=== PATIENT | female | born 1970 | race Caucasian/White ===

== ENCOUNTER 2021-07-07 08:08 | Outpatient (REF) | payer MEDICARE, MEDICAID, SELFPAY ==
[2021-07-07 11:30] LABS: Glucose Urine UA NEG (NEG); Leukocyte Esterase Urine 1+ (NEG); Nitrite Urine NEG (NEG); Urine Blood NEG (NEG); Urine Ketones NEG (NEG); Urine Protein NEG (NEG-TRACE)
[2021-07-07 11:39] LABS: Hematocrit 41.8 % (37-47); Hemoglobin 13.8 g/dl (12.0-16.0); Mean Corpuscular Hemoglobin 30.3 pg (27.0-33.0); Mean Corpuscular Volume 91.9 fL (80-98); Mean Platelet Volume 9.9 fL (9.4-12.3); Platelet Count 179 X10*3/uL (160-400); Red Blood Count 4.55 X10*6/uL (4.20-5.50); Red Cell Distribution Width 13.2 % (11.0-16.0)
[2021-07-07 11:43] LABS: Appearance Urine CLEAR; Color Urine YELLOW
[2021-07-07 11:54] LABS: Alanine Aminotransferase 17 U/L (0-31); Albumin Level 3.8 g/dL (3.5-5.0); Alkaline Phosphatase 75 U/L (39-117); Anion Gap 13 (12-20); Aspartate Amino Transferase 17 U/L (5-31); Bilirubin Total 0.4 mg/dL (0.0-1.0); Blood Urea Nitrogen 13 mg/dL (9-16); Calcium 9.6 mg/dL (8.4-10.2); Carbon Dioxide 27 mmol/L (22-29); Chloride 106 mmol/L (96-108); Cholesterol 189 mg/dL; Estimated Glomerular Filt Rate > 60; Glucose Fasting 88 mg/dL (60-99); HDL Cholesterol 54 mg/dL; Iron 126 mcg/dL (30-160); LDL Cholesterol Calculated 113 mg/dl; Percent Iron Saturation 51 % (15-50); Potassium 4.1 mmol/L (3.3-5.1); Sodium 142 mmol/L (135-145); Total Iron Binding Capacity 247 mcg/dL (228-428); Total Protein 6.6 g/dL (6.5-8.0); Triglycerides 114 mg/dL; Unsaturated Iron Binding 121 ug/dL
[2021-07-07 12:07] LABS: Bacteria Urine 2+ /LPF; RBC Urine 0 /HPF (0); Squamous Epithelial Cell Urine 3+ /LPF
[2021-07-07 12:17] LABS: TSH reflex Free T4 0.09 uIU/mL (0.32-4.0)
[2021-07-07 12:51] LABS: Free T4 (Free Thyroxine) 1.15 ng/dL (0.71-1.85)
== END 2021-07-07 08:09 | disposition home or self-care (01) ==
LOC: HO.HMGCLDS 08:08
PROVIDERS: PCP Internal Medicine; Visit Provider Internal Medicine
DX: Z00.00 Encounter for general adult medical examination without abnormal findings (principal); E03.9 Hypothyroidism, unspecified
CPT/HCPCS: 36415; 80053; 80061; 81001; 83540; 84439; 84443; 85027

== ENCOUNTER 2022-04-05 11:46 | Outpatient (REF) | payer MEDICARE, MEDICAID, SELFPAY ==
[2022-04-05 14:02] LABS: Hematocrit 44.6 % (37.0-47.0); Hemoglobin 14.6 g/dl (12.0-16.0); Mean Corpuscular HGB Conc 32.7 g/dl (31.0-35.0); Mean Corpuscular Hemoglobin 29.9 pg (27.0-33.0); Mean Corpuscular Volume 91.4 fL (80.0-98.0); Mean Platelet Volume 9.9 fL (9.4-12.3); Platelet Count 213 X10*3/uL (160-400); Red Blood Count 4.88 X10*6/uL (4.20-5.50); Red Cell Distribution Width 13.5 % (11.0-16.0); White Blood Count 4.5 X10*3/uL (4.8-10.8)
[2022-04-05 14:16] LABS: Alanine Aminotransferase 17 U/L (0-31); Albumin Level 4.1 g/dL (3.5-5.0); Alkaline Phosphatase 82 U/L (39-117); Anion Gap 12 (12-20); Aspartate Amino Transferase 17 U/L (5-31); Bilirubin Total 0.3 mg/dL (0.0-1.0); Blood Urea Nitrogen 13 mg/dL (9-16); Calcium 10.3 mg/dL (8.4-10.2); Carbon Dioxide 29 mmol/L (22-29); Chloride 103 mmol/L (96-108); Cholesterol 207 mg/dL; Estimated Glomerular Filt Rate > 60; Glucose Fasting 92 mg/dL (60-99); HDL Cholesterol 57 mg/dL; LDL Cholesterol Calculated 122 mg/dl; Potassium 4.5 mmol/L (3.3-5.1); Sodium 139 mmol/L (135-145); Total Protein 7.3 g/dL (6.5-8.0); Triglycerides 143 mg/dL
[2022-04-05 14:37] LABS: TSH reflex Free T4 0.32 uIU/mL (0.32-4.0)
[2022-04-05 14:46] LABS: Folate > 20.0 ng/mL (> or = 4.0); Vitamin B12 503 pg/mL (200-900)
== END 2022-04-05 11:47 | disposition home or self-care (01) ==
LOC: HO.HMGCLDS 11:46
PROVIDERS: Visit Provider Internal Medicine
DX: Z00.00 Encounter for general adult medical examination without abnormal findings (principal); G40.909 Epilepsy, unspecified, not intractable, without status epilepticus; E03.9 Hypothyroidism, unspecified
CPT/HCPCS: 36415; 80053; 80061; 82607; 82746; 84443; 85027

== ENCOUNTER 2022-07-28 13:12 | Outpatient (REF) | payer MEDICARE, MEDICAID, SELFPAY ==
--- NOTE | ~2022-07-28 | XR_ITS ---
EXAMINATION: XR CHEST CLINICAL INFORMATION: Cough. COMPARISON: None TECHNIQUE: 2 views of the chest were obtained. FINDINGS: No significant abnormality is noted involving the heart, lungs, mediastinum, bony thorax or soft tissues. XR/XR chest 2V IMPRESSION: No acute cardiopulmonary process.
[2022-07-28 17:03] LABS: Influenza A PCR NEGATIVE (Negative); Influenza B PCR NEGATIVE (Negative); Resp Syncy Virus RNA Qual PCR NEGATIVE (Negative); SARS COV2 PCR INHOUSE NEGATIVE (Negative)
== END 2022-07-28 13:13 | disposition home or self-care (01) ==
LOC: HO.HMGCX 13:12
PROVIDERS: Visit Provider Nurse Practitioner Acute Care
DX: R05.9 Cough, unspecified (principal); Z20.822 Contact with and (suspected) exposure to COVID-19
CPT/HCPCS: 0241U; 71046

== ENCOUNTER 2022-11-02 11:10 | Outpatient (REF) | payer MEDICARE, MEDICAID, SELFPAY ==
[2022-11-02 16:36] LABS: TSH reflex Free T4 0.01 uIU/mL (0.32-4.0)
[2022-11-02 17:11] LABS: Free T4 (Free Thyroxine) 1.84 ng/dL (0.71-1.85)
== END 2022-11-02 11:11 | disposition home or self-care (01) ==
LOC: HO.HMGCLDS 11:10
PROVIDERS: PCP Internal Medicine; Visit Provider Internal Medicine
DX: E03.9 Hypothyroidism, unspecified (principal)
CPT/HCPCS: 36415; 84439; 84443

== ENCOUNTER 2023-06-07 15:45 | Outpatient (AMB) | payer MEDICARE, MEDICAID, SELFPAY ==
--- NOTE | 2023-06-07 16:29 | AM.OFFWIN_ITS ---
Intake Vital Signs 06/07/23 16:35 BP 96/56 L Blood Pressure Location Rt brachial Position Sitting Pulse 92 Pulse Source Pulse Oximeter Temp 97.9 F Temp Source Oral Pulse Oximetry (%) 98 Oxygen Delivery Method Room Air Intake Visit Reasons: EST/Lathargic [id number] Intake Note: Patient here as she has not been eating and has lost weight, very drowsy, balance is off and has been very lathargic for about 2 weeks now but has been gradually happening since january. Patient Tobacco Use Status: Never used Tobacco Allergies Codeine Allergy (Unknown, Uncoded 06/07/23 16:35) as a baby Do you need a note to return to daycare/school/sports/work: No HPI HPI Comments History of Present Illness Details This is a 53-year-old female with past medical history significant for seizure disorder who is presenting to the office today for sick visit. Per patient's caregiver, patient has been experiencing weight loss for the past 3-4 months. Patient has also been refusing food and drink over the past 1 week. She has had altered mental status, drowsiness, and lethargy for the past 1 week. No reported chest pain, shortness of breath, abdominal pain, nausea/vom iting/diarrhea, dysuria/hematuria, urinary frequency/urgency, fever/chills, seizures, syncope, lightheadedness/dizziness, or pain throughout the body. [facility] Medical History Annual physical exam Eyelid cyst Hypothyroidism Mental disability Overweight Seizure disorder Surgical History No pertinent past surgical history Family History Father No problems noted. Mother No problems noted. Social History Housing: Assisted Living Facility Alcohol intake: never Patient Tobacco Use Status: Never used Tobacco e-Cigarette/Vaping Use: Never Used Current occupational status: disabled Cognitive needs: No Hearing needs: No Vision needs: No Review of Systems Const All systems reviewed & are unremarkable except as noted in HPI and below Reports anorexia, Denies chills, Reports fatigue, Denies fever(s), Reports lethargy, Reports poor appetite and Reports weight loss Eyes Reports as per HPI and Reports no additional complaints ENT Reports no additional complaints and Reports as per HPI Card Reports as per HPI and Reports no additional complaints Resp Reports as per HPI and Reports no additional complaints GI Reports as per HPI and Reports no additional complaints Reports no additional complaints and Reports as per HPI Musc Reports no additional complaints and Reports as per HPI Skin/Breast Reports system reviewed and no additional complaints, except as documented and Reports as per HPI Neuro Reports no additional complaints, Reports as per HPI and Reports confusion (baseline) Psych Reports no additional complaints, Reports as per HPI and Reports confusion (baseline) Endo Reports no additional complaints, Reports as per HPI and Reports fatigue Oren/Lymph Reports no additional complaints and Reports as per HPI Aller/Immun Reports no additional complaints and Reports as per HPI Physical Exam Vital Signs: Last Vital Signs Temp 97.9 F 06/07/23 16:35 Pulse 92 06/07/23 16:35 BP 96/56 L 06/07/23 16:35 Pulse Ox 98 06/07/23 16:35 Oxygen Delivery Method Room Air 06/07/23 16:35 Const General: no acute distress, alert, awake, Physically active and confusion (baseline); No ill appearing Orientation/consciousness: confusion (baseline) HEENT Head: Yes normal to inspection, Yes normocephalic and Yes atraumatic Ears: hearing grossly normal bilaterally and TM's normal bilaterally General nose exam: Normal external nose present Face and sinus: Yes normal facial exam Mouth: Abnormal oral and palatal mucosa present (There is a non-tender, non- purulent nodule noted on the right cheek.) Throat: Yes posterior oropharynx normal Eyes General: appearance normal, both eyes and all related structures Neck Neck: Yes no meningeal signs Resp Effort & Inspection: normal respiratory effort Auscultation: clear to auscultation bilaterally, no crackles, no rales, no rhonchi and no wheezes Cardio Rate: regular rate Rhythm: regular rhythm Heart sounds: no gallops, no murmurs and no rubs Peripheral pulses: Peripheral pulses 2+ throughout GI Inspection: Yes normal to inspection and No distended Palpation (GI): Soft to palpation and nontender Auscultation: normal bowel sounds General: Yes no CVA tenderness Back/Spine/Pelvis Back: no CVA tenderness Skin General skin exam: no rashes or lesions noted Neuro Other: Patient is disoriented, but this appears to be her baseline per caregiver. Patient does not appear somnolent or lethargic at this time. Patient moves all 4 extremities spontaneously and she has a normal gait without ataxia. Neurological exam is nonfocal. Speech is clear. 5/5 strength of bilateral upper and lower extremities. No pronator drift. Facial movements are equal and symmetric. General: gait normal, tone normal, moves all extremities, no meningeal signs, no focal motor deficits, CN's II-XI intact bilaterally and confusion (baseline) Motor exam (neuro): 5/5 motor strength present throughout Assessment & Plan Assessment & Plan (1) Lethargy: Code(s): R53.83 - Other fatigue Plan: This is a 53-year-old female with past medical history significant for seizure disorder and intellectual disability who presented to the office today with her caregiver in the setting of altered mental status, lethargy, decreased appetite, and weight loss. Differential diagnosis is broad but includes occult infection versus intracranial process versus antiepileptic drug toxicity versus dehydration. Unfortunately, our laboratory services are no longer available today so we are unable to initiate a workup. I highly recommended bringing the patient to the emergency room for further evaluation given her altered mental status and her lethargy. This was discussed with the patient's caregiver in the examination room as well as her mother/legal guardian, Samantha, via telephone. Samantha and her caregiver state that the patient looks better and does not appear to be lethargic or somnolent at this time. They have declined transfer to the emergency room at this time as they believe bringing Shahana to the emergency room will only make her more agitated. I again discussed my concerns with the caregiver and the patient's mother in detail and recommended they bring her to the emergency room sooner rather than later to rule out dehydration, infection, or drug toxicity. Patient's mother and the caregiver again declined and stated they will bring her to the emergency room tomorrow. Patient's mother is her legal guardian so she is the ultimate decision maker. I gave them very strict and detailed return precautions regarding when to bring Shahana to the emergency room including worsening altered mental status, worsening fevers, or decreased u rinary output. Patient's mother and caregiver verbalized their understanding. They were very appreciative. Coding Level of Care Code Est Pt Level 3 (29128) Diagnoses Lethargy R53.83
[2023-06-07 16:35] VITALS: BP 96/56; PULSE 92; TEMP 36.6; O2SAT 98
== END 2023-06-07 17:19 | disposition home or self-care (01) ==
PROVIDERS: PCP Internal Medicine; Visit Provider Physician Assistant Medical
DX: R53.83 Other fatigue (principal)
CPT/HCPCS: 99213

== ENCOUNTER 2023-10-23 08:59 | Outpatient (AMB) | payer MEDICARE, MEDICAID, SELFPAY ==
--- NOTE | 2023-10-23 09:01 | MHC.PC.OV ---
Intake Visit Reasons: ANÍBAL G0439~can have an Annual PE Allergies Codeine Allergy (Unknown, Uncoded 06/07/23 16:35) as a baby Tobacco use date assessed: 01/10/23 [facility] Medical History Annual physical exam Eyelid cyst Hypothyroidism Mental disability Overweight Seizure disorder Surgical History No pertinent past surgical history Family History Father No problems noted. Mother No problems noted. Social History Housing: Assisted Living Facility Alcohol intake: never Patient Tobacco Use Status: Never used Tobacco e-Cigarette/Vaping Use: Never Used Current occupational status: disabled Cognitive needs: No Hearing needs: No Vision needs: No Questionnaire Thrive Questionnaire Date Thrive assessed: 11/30/21 FRANKIE-7 AMB Questionnaire FRANKIE-7 Date FRANKIE - 7 assessed: 11/30/21 Source: Developed by Drs. Harry Akbar, Mallory Layne, Leonardo Wyatt and colleagues, with an educational dolly from [employer]. Physical exam (Primary Care) Tobacco/Smoking Status: Tobacco use Status Tobacco use date assessed 01/10/23 06/07/23 15:44 Patient Tobacco Use Status Never used Tobacco 06/07/23 16:40 e-Cigarette/Vaping Use Never Used 06/07/23 15:44 Thrive Assessment: Date of Thrive Assessment Date Thrive assessed 11/30/21 06/07/23 15:44 Coding
[2023-10-23 09:04] VITALS: BP 110/78; PULSE 89; O2SAT 97; BMI 30.1
--- NOTE | 2023-10-23 09:06 | A.OFFVIS_ITS ---
Intake Vital Signs 10/23/23 09:04 10/23/23 09:13 Height 4 ft 10 in Weight 144 lb BMI 30.1 30.1 BP 110/78 Blood Pressure Location Lt brachial Position Sitting Pulse 89 Pulse Source Pulse Oximeter Pulse Oximetry (%) 97 Oxygen Delivery Method Room Air Intake Visit Reasons: ANÍBAL G0439~can have an Annual PE Intake Note: Pt is here today for AWV. Allergies Codeine Allergy (Unknown, Uncoded 10/23/23 09:06) as a baby HPI SWV G0439~can have an Annual PE HPI Details Pt presents for PE/annualInitiated the conversation about Advanced Directives. Advanced Directives help? patients prepare for current and future decisions about their medical treatment? and place of care. Discussed with patient that it is a process where a patients? current condition and prognosis are reviewed, their wishes for information? regarding their illness are elicited, and likely medical dilemmas are presented? and options discussed. The form can be amended as needed, reviewed yearly and? make changes as needed IPPE/AWV ? year old presents? for her ? Annual? Wellness Visit, initial visit.? Medical / Social History Reviewed? Past Medical History ?Yes? . ? [place]? of Care / Care Team list updated ?Yes . ? Surgical/Hospitalization? History ?Yes . ? Current Medications? (including OTC and supplements) ?Yes . ? Family History ?Yes? . ? Tobacco? Control form ?Yes . ? AUDIT-C (Alcohol use) form? ?Yes . ? Illicit drug use in Social? History ?Yes . ? Current diagnosis of? depression? ?No ? Appropriate PHQ2/PHQ9? completed ?Yes . ? Data entered by ?[employer] and reviewed by provider ? Fall Risk ? Fall? History? Have you had any falls with? injury in the past year? ?No . ? Have you had two or more? falls in the past year? ?No . ? Fall Risk Assessment: ?No? falls in the past year . ? HRA filled out by? the patient, reviewed by Provider and scanned. ? IPPE/AWV ? Balance? [place]? ?Yes . ? Tandem? walk ?Yes . ? Walk and? Turn ?Yes . ? Rise from? sit to stand ?Yes . ?Vision? Corrective? lens ?Yes ? Vision? screen ? Up-to-date, has an appointment [] for vision? screening and glaucoma screening ?Hearing? Whisper? test ?pass .? Initiated the conversation about Advanced Directives. Advanced Directives help? patients prepare for current and future decisions about their medical treatment? and place of care. Discussed with patient that it is a process where a patients? current condition and prognosis are reviewed, their wishes for information? regarding their illness are elicited, and likely medical dilemmas are presented? and options discussed. The form can be amended as needed, reviewed yearly and? make changes as needed Written? Plan?Completed. See Patient? Documents. [facility] Medical History Overweight Annual physical exam Mental disability Eyelid cyst Seizure disorder Hypothyroidism Surgical History No pertinent past surgical history Family History (Reviewed 10/23/23 @ 09: by Rosalinda Kong MD) Father No problems noted. Mother No problems noted. Social History (Reviewed 10/23/23 @ 09: by Rosalinda Kong MD) Housing: Assisted Living Facility Alcohol intake: never Patient Tobacco Use Status: Never used Tobacco e-Cigarette/Vaping Use: Never Used Current occupational status: disabled Cognitive needs: No Hearing needs: No Vision needs: No Questionnaire Medicare Wellness Checkup What gender do you identify with?: female During the past 4 weeks, how much have you been bothered by emotional problems such as feeling anxious, depressed, irritable, sad or downhearted, and blue?: not at all During the past 4 weeks, has your physical & emotional health limited your social activities with family, friends, neighbors, or groups?: not at all During the past 4 weeks, how much bodily pain have you generally had?: no pain During the past 4 weeks, was someone available to help you if you needed & wanted help?: yes, as much as I wanted During the past 4 weeks, what was the hardest physical activity you could do for at least 2 minutes?: heavy Can you get to places out of walking distance without help? (For eg., can you travel alone on buses, taxis or drive your car?): Yes Can you go shopping for groceries or clothes without someone's help?: Yes Can you prepare your own meals?: Yes Can you do your housework without help?: Yes Because of any health problems, do you need the help of another person with your personal care needs such as eating, bathing, dressing or getting around the house?: No Can you handle your own money without help?: No During the past 4 weeks, how would you rate your health in general?: excellent During the past 4 weeks how have things been going for you?: very well; could hardly better Are you having difficulties driving your car?: not applicable, I don't use a car Do you always fasten your seat belt when you are in a car?: yes, usually During past 4 weeks, have you been bothered by the following: never: Falling or dizzy when standing up, Sexual problems?, Trouble eating well?, Teeth or denture problems?, Problems using the telephone? and Tiredness or fatigue? Have you fallen 2 or more times in the past year?: No Are you afraid of falling?: No Are you a smoker?: no During the past 4 weeks, how many drinks of wine, beer, or other alcoholic beverages did you have?: no alcohol at all Do you exercise for about 20 minutes 3 or more times a week?: yes, most of the time Have you been given information to help with the following?: no: Hazards in your house that might hurt you? and no: Keeping track of your medications? How often do you have trouble taking medicines the way you have been told to take them?: I always take medicine as prescribed How confident are you that you can control & manage most of your health problems?: very confident What is your race?: White Mini Mental State Exam (MMSE) Orientation What is the (year) (season) (date) (day) (month)?: season Where are we (state) (county) (town or city) (hospital) (floor)?: state Language Show patient a wristwatch & ask what it is. Repeat for pencil.: watch and pencil Ask the patient to repeat the phrase 'No ifs, ands, or buts' after you.: incorrect Score Score: 4 Activity of Daily Living Bathing - sponge bath, tub bath or shower: receives no assistance (gets in/out by self, if usual bathing means Dressing - getting clothes from closets & drawers, including inner/outer garments & fasteners.: gets clothes & gets completely dressed without help Toileting - going to the 'toilet room' for urine/bowel elimination & cleaning self/arranging clothes: goes to toilet room, cleans self, arranges clothes without help Transfer: moves in & out of bed and chair without help (may use support object) Continence: controls urination/bowel movements completely by self Feeding: feeds self without help Total Score: 0 Information obtained from: informant Using telephone: independent Traveling: independent Shopping: independent Preparing meals: independent Housework: independent Taking medicine: dependent Managing money: dependent PHQ-9 Over the last 2 weeks, how often have you been bothered by any of the following problems? 1. Little interest or pleasure in doing things: not at all 2. Feeling down, depressed, or hopeless: not at all 3. Trouble falling or staying asleep, or sleeping too much: not at all 4. Feeling tired or having little energy: not at all 5. Poor appetite or overeating: not at all 6. Feeling bad about yourself - or that you are a failure or have let yourself or your family down: not at all 7. Trouble concentrating on things, such as reading the newspaper or watching television: not at all 8. Moving or speaking so slowly that other people could have noticed. Or the opposite - being so fidgety or restless that you have been moving around a lot more than usual: not at all 9. Thoughts that you would be better off or of hurting yourself in some way: not at all Total score: 0 Depression Screening Interpretation: Negative Depression Screening Done: Yes 30147 - PHQ-9 Billing: Yes Source: Developed by Drs. Harry Akbar, Mallory Layne, Leonardo Wyatt and colleagues, with an educational dolly from [employer]. Review of Systems Const All systems reviewed & are unremarkable except as noted in HPI and below Reports no additional complaints Eyes Reports no additional complaints ENT Reports no additional complaints Card Reports no additional complaints Resp Reports no additional complaints GI Reports no additional complaints Reports no additional complaints Physical Exam Vital Signs: Last Vital Signs Pulse 89 10/23/23 09:04 BP 110/78 10/23/23 09:04 Pulse Ox 97 10/23/23 09:04 Oxygen Delivery Method Room Air 10/23/23 09:04 BMI result Body Mass Index 30.1 Const General: no acute distress Eyes General: appearance normal, both eyes and all related structures Neck Neck: Yes supple Resp Effort & Inspection: normal respiratory effort Auscultation: clear to auscultation bilaterally Cardio Rhythm: regular rhythm Heart sounds: S1 normal heart sound present and S2 normal heart sound present GI Inspection: Yes normal to inspection Palpation (GI): Soft to palpation Percussion: Yes normal to percussion Auscultation: normal bowel sounds Extrem General: Yes no clubbing, cyanosis or edema Assessment & Plan Assessment & Plan (1) Seizure disorder: Comment: Follow-up with neurology Code(s): G40.909 - Epilepsy, unspecified, not intractable, without status epilepticus Plan: f/u with neurology (2) Annual physical exam: Code(s): Z00.00 - Encounter for general adult medical examination without abnormal findings Plan: well balanced diet, regular physical activity, weight loss discussed with pt's caregiver. Pt's mother refused pt to have mammogram/colonoscopy/pelvic exam (3) Hypothyroidism: Code(s): E03.9 - Hypothyroidism, unspecified Plan: cont Levothryoxine, check TSH (4) Overweight: Code(s): E66.3 - Overweight Orders: Orders Comprehensive [place]. Panel Fast Today E03.9 - Hypothyroidism, unspecified, E66.3 - Overweight, G40.909 - Epilepsy, unspecified, not intractable, without status epilepticus, Z00.00 - Encounter for general adult medical examination without abnormal findings Complete Blood Count Auto Diff Today E03.9 - Hypothyroidism, unspecified, E66.3 - Overweight, G40.909 - Epilepsy, unspecified, not intractable, without status epilepticus, Z00.00 - Encounter for general adult medical examination without abnormal findings Lipid Panel Today E03.9 - Hypothyroidism, unspecified, E66.3 - Overweight, G40.909 - Epilepsy, unspecified, not intractable, without status epilepticus, Z00.00 - Encounter for general adult medical examination without abnormal findings TSH reflex Free T4 Today E03.9 - Hypothyroidism, unspecified, E66.3 - Overweight, G40.909 - Epilepsy, unspecified, not intractable, without status epilepticus, Z00.00 - Encounter for general adult medical examination without abnormal findings Vitamin D 25-OH Total Today E03.9 - Hypothyroidism, unspecified, E66.3 - Overweight, G40.909 - Epilepsy, unspecified, not intractable, without status epilepticus, Z00.00 - Encounter for general adult medical examination without abnormal findings Quality Reporting (2019) Depression/Bipolar (159/160/161/177) PHQ-9: Total score: 0 Coding Level of Care Code Medicare Subsequent (G0439) Diagnoses Seizure disorder G40.909 Annual physical exam Z00.00 Hypothyroidism E03.9 Overweight E66.3 CPT Codes Advance Care Planning - Time spent: 1-15 minutes, not on file ([id number]) Advance Care Planning Advance Care Planning discussion: Exists, not on file Forms completed: Health Care Proxy Time spent: 1-15 minutes, not on file
[2023-10-23 09:13] VITALS: BMI 30.1
== END 2023-10-23 09:40 | disposition home or self-care (01) ==
PROVIDERS: PCP Internal Medicine; Visit Provider Internal Medicine
DX: G40.909 Epilepsy, unspecified, not intractable, without status epilepticus (principal); Z00.00 Encounter for general adult medical examination without abnormal findings; E03.9 Hypothyroidism, unspecified; E66.3 Overweight
CPT/HCPCS: 1124F; G0439

== ENCOUNTER 2023-10-23 09:41 | Outpatient (REF) | payer MEDICARE, MEDICAID, SELFPAY ==
[2023-10-23 11:28] LABS: MANUAL DIFF FLAG NO
[2023-10-23 11:35] LABS: Basophils Percent Auto 0.8 % (0-2); Eosinophils Absolute Auto 0.1 X10*3/uL (0.0-0.4); Eosinophils Percent Auto 1.8 % (0-4); Hematocrit 44.2 % (37.0-47.0); Hemoglobin 14.5 g/dl (12.0-16.0); Lymphocytes Absolute Auto 2.2 X10*3/uL (1.2-4.9); Lymphocytes Percent Auto 56.1 % (20-40); Mean Corpuscular HGB Conc 32.8 g/dl (31.0-35.0); Mean Corpuscular Hemoglobin 30.1 pg (27.0-33.0); Mean Corpuscular Volume 91.9 fL (80.0-98.0); Monocytes Absolute Auto 0.3 X10*3/uL (0.1-1.2); Monocytes Percent Auto 7.1 % (2-11); Neutrophils Absolute Auto 1.3 x10*3/uL (2.0-8.3); Neutrophils Percent Auto 34.2 % (45-73); Platelet Count 171 X10*3/uL (160-400); Red Blood Count 4.81 X10*6/uL (4.20-5.50); Red Cell Distribution Width 13.3 % (11.0-16.0); White Blood Count 3.9 X10*3/uL (4.8-10.8)
[2023-10-23 12:27] LABS: Alanine Aminotransferase 17 U/L (0-31); Albumin Level 4.2 g/dL (3.5-5.0); Alkaline Phosphatase 68 U/L (39-117); Anion Gap 10 (12-20); Aspartate Amino Transferase 17 U/L (5-31); Bilirubin Total 0.4 mg/dL (0.0-1.0); Blood Urea Nitrogen 13 mg/dL (9-16); Calcium 9.9 mg/dL (8.4-10.2); Carbon Dioxide 30 mmol/L (22-29); Chloride 105 mmol/L (96-108); Cholesterol 205 mg/dL (<200); Estimated Glomerular Filt Rate > 60; Glucose Fasting 80 mg/dL (60-99); HDL Cholesterol 60 mg/dL (>40); LDL Cholesterol Calculated 118 mg/dL (<100); Potassium 3.9 mmol/L (3.3-5.1); Sodium 141 mmol/L (135-145); Total Protein 7.2 g/dL (6.5-8.0); Triglycerides 135 mg/dL (<150)
[2023-10-23 12:33] LABS: TSH reflex Free T4 0.04 uIU/mL (0.32-4.0); Vitamin D 25-OH Total 69.4 ng/mL (>30)
[2023-10-23 13:30] LABS: Free T4 (Free Thyroxine) 1.19 ng/dL (0.71-1.85)
== END 2023-10-23 09:42 | disposition home or self-care (01) ==
LOC: HO.HMGCLDS 09:41
PROVIDERS: PCP Internal Medicine; Visit Provider Internal Medicine
DX: Z00.00 Encounter for general adult medical examination without abnormal findings (principal); E03.9 Hypothyroidism, unspecified; E66.3 Overweight; G40.909 Epilepsy, unspecified, not intractable, without status epilepticus
CPT/HCPCS: 36415; 80053; 80061; 82306; 84439; 84443; 85025

== ENCOUNTER 2024-03-28 09:52 | Outpatient (REF) | payer MEDICARE, MEDICAID, SELFPAY ==
[2024-03-28 11:19] LABS: Basophils Percent Auto 0.3 % (0-2); Eosinophils Absolute Auto 0.1 X10*3/uL (0.0-0.4); Eosinophils Percent Auto 1.4 % (0-4); Hematocrit 44.5 % (37.0-47.0); Hemoglobin 14.8 g/dl (12.0-16.0); Lymphocytes Absolute Auto 2.3 X10*3/uL (1.2-4.9); Lymphocytes Percent Auto 63.2 % (20-40); MANUAL DIFF FLAG SCAN; Mean Corpuscular HGB Conc 33.3 g/dl (31.0-35.0); Mean Corpuscular Hemoglobin 30.5 pg (27.0-33.0); Mean Corpuscular Volume 91.8 fL (80.0-98.0); Mean Platelet Volume 9.7 fL (9.4-12.3); Monocytes Absolute Auto 0.3 X10*3/uL (0.1-1.2); Monocytes Percent Auto 8.1 % (2-11); Platelet Count 167 X10*3/uL (160-400); Red Blood Count 4.85 X10*6/uL (4.20-5.50); SCAN SMEAR FLAG 1; White Blood Count 3.7 X10*3/uL (4.8-10.8)
[2024-03-28 11:43] LABS: SLIDE REVIEW VERIFIED
[2024-03-28 12:19] LABS: Alanine Aminotransferase 16 U/L (0-31); Albumin Level 4.3 g/dL (3.5-5.0); Alkaline Phosphatase 73 U/L (39-117); Anion Gap 16 (12-20); Aspartate Amino Transferase 21 U/L (5-31); Bilirubin Total 0.3 mg/dL (0.0-1.0); Blood Urea Nitrogen 12 mg/dL (9-16); Calcium 9.9 mg/dL (8.4-10.2); Carbon Dioxide 24 mmol/L (22-29); Chloride 106 mmol/L (96-108); Cholesterol 200 mg/dL (<200); Estimated Glomerular Filt Rate > 60; Glucose Fasting 85 mg/dL (60-99); HDL Cholesterol 60 mg/dL (>40); LDL Cholesterol Calculated 117 mg/dL (<100); Potassium 4.3 mmol/L (3.3-5.1); Sodium 142 mmol/L (135-145); Total Protein 7.5 g/dL (6.5-8.0); Triglycerides 118 mg/dL (<150)
[2024-03-28 12:20] LABS: TSH reflex Free T4 0.01 uIU/mL (0.32-4.0); Vitamin D 25-OH Total 72.5 ng/mL (>30)
[2024-03-28 13:23] LABS: Free T4 (Free Thyroxine) 1.18 ng/dL (0.71-1.85)
[2024-03-29 07:54] LABS: Triiodothyronine T3 Free 3.2 pg/mL (2.3-4.2)
== END 2024-03-28 09:53 | disposition home or self-care (01) ==
LOC: HO.HMGCLDS 09:52
PROVIDERS: PCP Internal Medicine; Visit Provider Internal Medicine
DX: G40.909 Epilepsy, unspecified, not intractable, without status epilepticus (principal); E03.9 Hypothyroidism, unspecified; E66.3 Overweight
CPT/HCPCS: 36415; 80053; 80061; 82306; 84439; 84443; 84481; 85025

== ENCOUNTER 2024-03-31 10:32 | Outpatient (AMB) | payer MEDICARE, MEDICAID, SELFPAY ==
[2024-03-31 10:44] VITALS: BP 106/66; PULSE 93; O2SAT 98; BMI 30.3
--- NOTE | 2024-03-31 10:44 | A.OFFPC_ITS ---
Vital Signs 03/31/24 10:44 Height 4 ft 10 in Weight 145 lb BMI 30.3 BP 106/66 Blood Pressure Location Rt brachial Position Sitting Pulse 93 Pulse Source Pulse Oximeter Pulse Oximetry (%) 98 Oxygen Delivery Method Room Air Intake Visit Reasons: 6 Month F/U Intake Note: Pt is here today for 6 months follow up visit on labs. Allergies Codeine Allergy (Unknown, Uncoded 03/31/24 10:48) as a baby Medication List - Last Reconciled 03/31/24 by Rosalinda Kong MD acetaminophen 500 mg PO QID PRN ammonium lactate 12% 1 appl topical BID calcium polycarbophil (Fiber-Lax) 625 mg PO BID cholecalciferol (vitamin D3) 50 mcg PO DAILY dextromethorphan HBr 7.5 mg PO Q8H divalproex mg PO docusate sodium 100 mg PO BID gabapentin 800 mg PO TID ketoconazole 2% 1 appl topical BID levocarnitine 330 mg PO TID levothyroxine 137 mcg PO DAILY jcbnszwj-xdsp-ST-calcium-mins 9 mg iron-400 mcg (Thera-M) 1 tab PO QAM phenytoin mg PO PRN Tobacco use date assessed: 03/31/24 Dental Screening Dental Screen Date: 03/31/24 Did you have a dental visit in the last 12 months?: Yes Did you have a dental problem in the last 6 months where you did not have access to dental care?: No Was dental information given to patient?: Patient has dentist HPI 6 Month F/U HPI Details Patient presents for the follow-up of hypothyroidism seizure disorder [facility] Medical History Overweight Annual physical exam Mental disability Eyelid cyst Seizure disorder Hypothyroidism Surgical History No pertinent past surgical history Family History Father No problems noted. Mother No problems noted. Social History Housing: Assisted Living Facility Alcohol intake: never Patient Tobacco Use Status: Never used Tobacco e-Cigarette/Vaping Use: Never Used service: No Current occupational status: disabled Cognitive needs: No Hearing needs: No Vision needs: No Questionnaire PHQ-9 Over the last 2 weeks, how often have you been bothered by any of the following problems? 1. Little interest or pleasure in doing things: not at all 2. Feeling down, depressed, or hopeless: not at all 3. Trouble falling or staying asleep, or sleeping too much: not at all 4. Feeling tired or having little energy: not at all 5. Poor appetite or overeating: not at all 6. Feeling bad about yourself - or that you are a failure or have let yourself or your family down: not at all 7. Trouble concentrating on things, such as reading the newspaper or watching television: not at all 8. Moving or speaking so slowly that other people could have noticed. Or the opposite - being so fidgety or restless that you have been moving around a lot more than usual: not at all 9. Thoughts that you would be better off or of hurting yourself in some way: not at all Total score: 0 Depression Screening Interpretation: Negative Depression Screening Done: Yes 60120 - PHQ-9 Billing: Yes Source: Developed by Drs. Harry Akbar, Mallory Layne, Leonardo Wyatt and colleagues, with an educational dolly from [employer]. Thrive Questionnaire Date Thrive assessed: 03/31/24 I am a: Patient What is your living situation today?: I have a steady place to live Within the past 12 months, did the food you bought not last and you didn't have the money to get more?: Never true Within the past 12 months, did you worry whether your food would run out before you got money to buy more?: Never true Do you have trouble paying for medicines?: No Do you have trouble getting transportation to medical appointments?: No Do you have trouble paying your heating and electricity bill?: No Do you have trouble taking care of your child, family member or friend?: No Do you have trouble with day-to-day activities such as bathing, preparing meals, shopping, managing finances, etc.?: No Are you currently unemployed and looking for a job?: No Are you interested in more education?: No Please select the resources that you would like help with: None THRIVE Score: 0 AUDIT C Alcohol Use Questionnaire (AUDIT-C) 1. How often do you have a drink containing alcohol?: Never 3. How often do you have six or more drinks on one occasion?: Never Total Score: 0 FRANKIE-7 AMB Questionnaire FRANKIE-7 Date FRANKIE - 7 assessed: 03/31/24 Feeling nervous, anxious, or on edge: 0 = Not at all Not being able to stop or control worryin = Not at all Worrying too much about different things: 0 = Not at all Trouble relaxin = Not at all Being so restless that it is hard to sit still: 0 = Not at all Becoming easily annoyed or irritable: 0 = Not at all Feeling afraid as if something awful might happen: 0 = Not at all Total FRANKIE-7 score (0-4 normal; 5-9 mild; 10-14 moderate; 15-21 severe): 0 Source: Developed by Drs. Harry Akbar, Mallory Layne, Leonardo Wyatt and colleagues, with an educational dolly from [employer]. Review of Systems Const All systems reviewed & are unremarkable except as noted in HPI and below ENT Reports no additional complaints Card Reports no additional complaints Resp Reports no additional complaints GI Reports no additional complaints Physical exam (Primary Care) Vital Signs: Last Vital Signs Pulse 93 03/31/24 10:44 BP 106/66 03/31/24 10:44 Pulse Ox 98 03/31/24 10:44 Oxygen Delivery Method Room Air 03/31/24 10:44 BMI result Body Mass Index 30.3 Tobacco/Smoking Status: Tobacco use Status Tobacco use date assessed 03/31/24 03/31/24 10:51 Patient Tobacco Use Status Never used Tobacco 03/31/24 10:51 e-Cigarette/Vaping Use Never Used 03/31/24 10:44 PHQ-9: PHQ-9 Score PHQ-9: Total score 0 03/31/24 10:51 Depression Screening Interpretation: Negative Thrive Assessment: Date of Thrive Assessment Date Thrive assessed 03/31/24 03/31/24 10:51 Const General: no acute distress HENMT Mouth: Normal oral and palatal mucosa present Neck Neck: Yes supple Resp Effort & Inspection: normal respiratory effort Auscultation: clear to auscultation bilaterally Cardio Rhythm: regular rhythm Heart sounds: S1 normal heart sound present and S2 normal heart sound present GI Inspection: Yes normal to inspection Assessment and Plan Assessment & Plan (1) Hypothyroidism: Code(s): E03.9 - Hypothyroidism, unspecified Plan: TSH is suppressed and levothyroxine will be decreased to 125 mcg for from 12/24 7 TSH will be checked in 3 and 6 months (2) Seizure disorder: Comment: Follow-up with neurology Code(s): G40.909 - Epilepsy, unspecified, not intractable, without status epilepticus Plan: Continue current medications follow-up with Neurology (3) Vitamin D deficiency: Code(s): E55.9 - Vitamin D deficiency, unspecified Plan: Continue vitamin-D supplement check the level Orders: Orders Complete Blood Count Auto Diff 6 Months E03.9 - Hypothyroidism, unspecified, E55.9 - Vitamin D deficiency, unspecified, G40.909 - Epilepsy, unspecified, not intractable, without status epilepticus TSH reflex Free T4 3 Months E03.9 - Hypothyroidism, unspecified Comprehensive [place]. Panel Fast 6 Months E03.9 - Hypothyroidism, unspecified, E55.9 - Vitamin D deficiency, unspecified, G40.909 - Epilepsy, unspecified, not intractable, without status epilepticus TSH reflex Free T4 6 Months E03.9 - Hypothyroidism, unspecified, E55.9 - Vitamin D deficiency, unspecified, G40.909 - Epilepsy, unspecified, not intractable, without status epilepticus Lipid Panel 6 Months E03.9 - Hypothyroidism, unspecified, E55.9 - Vitamin D deficiency, unspecified, G40.909 - Epilepsy, unspecified, not intractable, without status epilepticus Vitamin D 25-OH Total 6 Months E03.9 - Hypothyroidism, unspecified, E55.9 - Vitamin D deficiency, unspecified, G40.909 - Epilepsy, unspecified, not intractable, without status epilepticus Medications: New levothyroxine 125 mcg PO DAILY 90 tabs 0RF Discontinued levothyroxine Discontinued Reason: Doctor's Order 137 mcg PO DAILY 90 tabs 3RF Coding Level of Care Code Est Pt Level 3 (59500) Diagnoses Hypothyroidism E03.9 Seizure disorder G40.909 Vitamin D deficiency E55.9
== END 2024-03-31 11:21 | disposition home or self-care (01) ==
PROVIDERS: PCP Internal Medicine; Visit Provider Internal Medicine
DX: E03.9 Hypothyroidism, unspecified (principal); G40.909 Epilepsy, unspecified, not intractable, without status epilepticus; E55.9 Vitamin D deficiency, unspecified
CPT/HCPCS: 99213

== ENCOUNTER 2024-12-25 09:50 | Outpatient (AMB) | payer MEDICARE, MEDICAID, SELFPAY ==
[2024-12-25 10:04] VITALS: BP 112/70; PULSE 99; RESP 16; TEMP 36.7; O2SAT 98; BMI 29.5
--- NOTE | 2024-12-25 10:04 | MHC.PC.OV ---
Vital Signs 12/25/24 10:04 Height 4 ft 10 in Weight 141 lb BMI 29.5 BP 112/70 Blood Pressure Location Rt brachial Position Sitting Respiration 16 Pulse 99 Pulse Source Pulse Oximeter Temp 98.0 F Temp Source Oral Pulse Oximetry (%) 98 Oxygen Delivery Method Room Air Intake Visit Reasons: PE Intake Note: Pt is here today for PE. Allergies Codeine Allergy (Unknown, Uncoded 12/25/24 10:04) as a baby Medication List - Last Reconciled 12/25/24 by Rosalinda Kong MD acetaminophen 500 mg PO QID PRN ammonium lactate 12% 1 appl topical BID calcium polycarbophil (Fiber-Lax) 625 mg PO BID cholecalciferol (vitamin D3) 50 mcg PO DAILY dextromethorphan HBr 7.5 mg PO Q8H divalproex mg PO docusate sodium 100 mg PO BID gabapentin 800 mg PO TID ketoconazole 2% 1 appl topical BID levocarnitine 330 mg PO TID levothyroxine 125 mcg PO DAILY fgodzcdb-emvo-PC-calcium-mins 9 mg iron-400 mcg 1 tab PO QAM phenytoin mg PO PRN Tobacco use date assessed: 12/25/24 Dental Screening Dental Screen Date: 12/25/24 Did you have a dental visit in the last 12 months?: Yes Did you have a dental problem in the last 6 months where you did not have access to dental care?: No Was dental information given to patient?: Patient has dentist HPI PE HPI Details Patient presents for a physical [facility] Medical History Overweight Annual physical exam Mental disability Eyelid cyst Seizure disorder Hypothyroidism Surgical History No pertinent past surgical history Family History Father No problems noted. Mother No problems noted. Social History Housing: Assisted Living Facility Alcohol intake: never Patient Tobacco Use Status: Never used Tobacco e-Cigarette/Vaping Use: Never Used service: No Current occupational status: disabled Cognitive needs: No Hearing needs: No Vision needs: No Questionnaire PHQ-9 Over the last 2 weeks, how often have you been bothered by any of the following problems? 1. Little interest or pleasure in doing things: not at all 2. Feeling down, depressed, or hopeless: not at all 3. Trouble falling or staying asleep, or sleeping too much: not at all 4. Feeling tired or having little energy: not at all 5. Poor appetite or overeating: not at all 6. Feeling bad about yourself - or that you are a failure or have let yourself or your family down: not at all 7. Trouble concentrating on things, such as reading the newspaper or watching television: not at all 8. Moving or speaking so slowly that other people could have noticed. Or the opposite - being so fidgety or restless that you have been moving around a lot more than usual: not at all 9. Thoughts that you would be better off or of hurting yourself in some way: not at all Total score: 0 Depression Screening Interpretation: Negative Depression Screening Done: Yes 76770 - PHQ-9 Billing: Yes Source: Developed by Drs. Harry Akbar, Mallory Layne, Leonardo Wyatt and colleagues, with an educational dolly from [employer] Thrive Questionnaire Date Thrive assessed: 12/25/24 I am a: Patient What is your living situation today?: I have a steady place to live Within the past 12 months, did the food you bought not last and you didn't have the money to get more?: Never true Within the past 12 months, did you worry whether your food would run out before you got money to buy more?: Never true Do you have trouble paying for medicines?: No Do you have trouble getting transportation to medical appointments?: No Do you have trouble paying your heating and electricity bill?: No Do you have trouble taking care of your child, family member or friend?: No Do you have trouble with day-to-day activities such as bathing, preparing meals, shopping, managing finances, etc.?: Yes Are you currently unemployed and looking for a job?: No Are you interested in more education?: No Please select the resources that you would like help with: None Currently or been in a relationship where the following occur: No concerns reported THRIVE Score: 0 AUDIT C Alcohol Use Questionnaire (AUDIT-C) 1. How often do you have a drink containing alcohol?: Never 3. How often do you have six or more drinks on one occasion?: Never Total Score: 0 FRANKIE-7 AMB Questionnaire FRANKIE-7 Date FRANKIE - 7 assessed: 12/25/24 Feeling nervous, anxious, or on edge: 0 = Not at all Not being able to stop or control worryin = Not at all Worrying too much about different things: 0 = Not at all Trouble relaxin = Not at all Being so restless that it is hard to sit still: 0 = Not at all Becoming easily annoyed or irritable: 0 = Not at all Feeling afraid as if something awful might happen: 0 = Not at all Total FRANKIE-7 score (0-4 normal; 5-9 mild; 10-14 moderate; 15-21 severe): 0 Source: Developed by Drs. Harry Akbar, Mallory Layne, Leonardo Wyatt and colleagues, with an educational dolly from [employer] FRANKIE-7 Assessment Billing FRANKIE-7 Assessment Tool: FRANKIE-7 Assessment 14727 Review of Systems Const All systems reviewed & are unremarkable except as noted in HPI and below Eyes Reports no additional complaints ENT Reports no additional complaints Card Reports no additional complaints Resp Reports no additional complaints GI Reports no additional complaints Reports no additional complaints Physical exam (Primary Care) Vital Signs: Last Vital Signs Temp 98.0 F 12/25/24 10:04 Pulse 99 12/25/24 10:04 Resp 16 12/25/24 10:04 BP 112/70 12/25/24 10:04 Pulse Ox 98 12/25/24 10:04 Oxygen Delivery Method Room Air 12/25/24 10:04 BMI result Body Mass Index 29.5 Tobacco/Smoking Status: Tobacco use Status Tobacco use date assessed 12/25/24 12/25/24 10:10 Patient Tobacco Use Status Never used Tobacco 12/25/24 10:10 e-Cigarette/Vaping Use Never Used 12/25/24 10:10 PHQ-9: PHQ-9 Score PHQ-9: Total score 0 12/25/24 10:10 Depression Screening Interpretation: Negative Thrive Assessment: Date of Thrive Assessment Date Thrive assessed 12/25/24 12/25/24 10:10 Currently or been in a relationship where the following occur: No concerns reported Const General: no acute distress HENMT Head: Yes normal to inspection Ears: hearing grossly normal bilaterally Face and sinus: Yes normal facial exam Throat: Yes posterior oropharynx normal Eyes General: appearance normal, both eyes and all related structures Neck Neck: Yes no lymphadenopathy and Yes supple Resp Effort & Inspection: normal respiratory effort Auscultation: clear to auscultation bilaterally Cardio Rhythm: regular rhythm Heart sounds: S1 normal heart sound present and S2 normal heart sound present GI Inspection: Yes normal to inspection Palpation (GI): Soft to palpation Percussion: Yes normal to percussion Auscultation: normal bowel sounds Coding Level of Care Code Est Pt Prev Care 40-64y(36631) Diagnoses Seizure disorder G40.909 Vitamin D deficiency E55.9 Hypothyroidism E03.9 Annual physical exam Z00.00 Additional Codes FRANKIE-7 Assessment Billing - FRANKIE-7 Assessment Tool: FRANKIE-7 Assessment 41641 ([id number]) PHQ-9 - 24306 - PHQ-9 Billing: Yes ([id number]) Assessment & Plan Assessment & Plan (1) Seizure disorder: Comment: Follow-up with neurology Code(s): G40.909 - Epilepsy, unspecified, not intractable, without status epilepticus Category: Medical Plan: Continue current medications (2) Vitamin D deficiency: Code(s): E55.9 - Vitamin D deficiency, unspecified Category: Medical Plan: Continue vitamin-D supplement check the level (3) Hypothyroidism: Code(s): E03.9 - Hypothyroidism, unspecified Category: Medical Plan: Continue levothyroxine, check TSH (4) Annual physical exam: Code(s): Z00.00 - Encounter for general adult medical examination without abnormal findings Category: Medical Plan: Well-balanced diet regular physical activity discussed with patient and her caregiver. Patient's mother who is her healthcare proxy declined mammogram colonoscopy and communications attendant exam. Patient will return in 6 months Orders: Orders Lipid Panel Today E03.9 - Hypothyroidism, unspecified, E55.9 - Vitamin D deficiency, unspecified, G40.909 - Epilepsy, unspecified, not intractable, without status epilepticus, Z00.00 - Encounter for general adult medical examination without abnormal findings TSH reflex Free T4 6 Months E03.9 - Hypothyroidism, unspecified, G40.909 - Epilepsy, unspecified, not intractable, without status epilepticus Comprehensive [place]. Panel Fast 6 Months E03.9 - Hypothyroidism, unspecified, G40.909 - Epilepsy, unspecified, not intractable, without status epilepticus Comprehensive [place]. Panel Fast Today E03.9 - Hypothyroidism, unspecified, E55.9 - Vitamin D deficiency, unspecified, G40.909 - Epilepsy, unspecified, not intractable, without status epilepticus, Z00.00 - Encounter for general adult medical examination without abnormal findings Complete Blood Count Auto Diff Today E03.9 - Hypothyroidism, unspecified, E55.9 - Vitamin D deficiency, unspecified, G40.909 - Epilepsy, unspecified, not intractable, without status epilepticus, Z00.00 - Encounter for general adult medical examination without abnormal findings Vitamin D 25-OH Total Today E03.9 - Hypothyroidism, unspecified, E55.9 - Vitamin D deficiency, unspecified, G40.909 - Epilepsy, unspecified, not intractable, without status epilepticus, Z00.00 - Encounter for general adult medical examination without abnormal findings Vitamin B12 and Folate Today E03.9 - Hypothyroidism, unspecified, E55.9 - Vitamin D deficiency, unspecified, G40.909 - Epilepsy, unspecified, not intractable, without status epilepticus, Z00.00 - Encounter for general adult medical examination without abnormal findings TSH reflex Free T4 Today E03.9 - Hypothyroidism, unspecified, E55.9 - Vitamin D deficiency, unspecified, G40.909 - Epilepsy, unspecified, not intractable, without status epilepticus, Z00.00 - Encounter for general adult medical examination without abnormal findings Medications: New polyethylene glycol 3350 (Miralax) 17 grams PO DAILY 100 ea 3RF Refilled cholecalciferol (vitamin D3) 50 mcg PO DAILY 90 caps 3RF acetaminophen 500 mg PO QID PRN 90 caps 0RF fever or pain docusate sodium 100 mg PO BID 180 caps 3RF levothyroxine 125 mcg PO DAILY 90 tabs 3RF
--- OUTSIDE RECORDS SUMMARY | 2024-12-25 10:29 | XMS_ITS | Continuity of Care Document ---
Author Organization [facility] Address [address] [facility], [address] d [address], [address] [place] [address]- Care Team Providers Care Laborer [employer] Name Role Phone Rosalinda Kong MD Primary Care Physician [phone] [id number] Date(s): 08/11/24 - 12/09/24 [facility] [address] [facility] [address] [address]rd Floor, [address] [place] [address]- Attending Physician: Nikhil Willson MD Admitting Physician: Nikhil Willson MD Encounter Type: Pre-OutPatient One Time Allergies, Adverse Reactions, Alerts Substance Criticality Severity Reaction Reaction Severity Status Tylenol with Codeine #2 Active Medications acetaminophen 1,000mg acetaminophen 1,000mg, Refills 0, Maintenance, 09/22/18 2:26:31 PM EDT, Compound Start Date: 09/22/18 Status: Ordered Repeat number: 1 Ativan 1 mg oral tablet See Instructions, 1 tablet By Mouth after 3 or more seizures with in 1 hour., # 15 tablet, 0 Refills, Maintenance, 02/13/18 1:32:23 PM EDT Start Date: 02/13/18 Status: Ordered Quantity: 15.0 Unit: tablet Repeat number: 1 cerovite cerovite, Refills 0, Maintenance, 08/29/20 12:50:00 PM EDT, Supply Start Date: 08/29/20 Status: Ordered Repeat number: 1 Cerovite Advanced Formula 1 tablet, By Mouth, Daily, 0 Refills, Maintenance, 03/11/13 1:43:06 PM EDT Start Date: 03/11/13 Status: Ordered Repeat number: 1 colace colace, Refills 0, Maintenance, 09/22/18 2:26:10 PM EDT, Compound Start Date: 09/22/18 Status: Ordered Repeat number: 1 divalproex sodium 500 mg oral enteric coated tablet 1 tablet, By Mouth, 2 times a day, TAKE 2 TABLETS BY MOUTH DAILY AT BEDTIME., # 120 tablet, 3 Refills, Maintenance, 10/06/24 3:00:00 PM [place], [facility], 150, cm, 02/17/24 12:53:00 EDT, Height, 70, kg, 06/24/23 12:09:00 EDT, Dry Weight Start Date: 10/06/24 Status: Ordered Quantity: 120.0 Unit: tablet Repeat number: 1 FiberCon 625 mg oral tablet 0 Refills, Maintenance, 03/11/13 1:43:21 PM EDT Start Date: 03/11/13 Status: Ordered Repeat number: 1 gabapentin 800 mg oral tablet 1 tablet, By Mouth, 3 times a day, (SEIZURE), # 90 tablet, 11 Refills, Maintenance, 10/06/24 3:00:00 PM [facility], 150, cm, 02/17/24 12:53:00 EDT, Height, 70, kg, 06/24/23 12:09:00 EDT, Dry Weight Start Date: 10/06/24 Status: Ordered Quantity: 90.0 Unit: tablet Repeat number: 1 levOCARNitine 330 mg oral tablet 1, tablet, By Mouth, 3 times a day, (SEIZURE) KEEP IN ORIGINAL PACKAGE, # 90 tablet, Refills 3,Maintenance, 09/23/24 4:08:00 PM EDT, Route to Pharmacy Electronically, [facility], 150, cm, 02/17/24 12:53:00 EDT, Height, 70, kg, 06/24/23 12:09:00 EDT, Dry Weight Start Date: 09/23/24 Status: Ordered Quantity: 90.0 Unit: tablet Repeat number: 1 Levoxyl 0.125 mg oral tablet 1 tablet = 125 mcg, By Mouth, Daily, 0 Refills, Maintenance, 03/11/13 1:42:52 PM EDT Start Date: 03/11/13 Status: Ordered Repeat number: 1 phenytoin 50 mg oral tablet, chewable 2 tablet, By Mouth, 2 times a day, TAKE 1 TABLET BY MOUTH DAILY IN THE AFTERNOON., # 150 tablet, 11Refills, Maintenance, 10/06/24 3:00:00 PM [facility], 150, cm, 02/17/24 12:53:00EDT, Height, 70, kg, 06/24/23 12:09:00 EDT, Dry Weight Start Date: 10/06/24 Status: Ordered Quantity: 150.0 Unit: tablet Repeat number: 1 robitussin syrup robitussin syrup, Refills 0, Maintenance, 09/22/18 2:25:27 PM EDT, Compound Start Date: 09/22/18 Status: Ordered Repeat number: 1 Vitamin D3 1000 intl units oral capsule 1 capsule = 1,000 International_Units, By Mouth, Daily, # 30 capsule, 6 Refills, Maintenance, 02/08/17 3:17:01 PM EDT Start Date: 02/08/17 Stop Date: 09/06/17 Status: Ordered Quantity: 30.0 Unit: capsule Repeat number: 7 Problem List Condition Confirmation Course Effective Dates Status Health St atus Informant Epilepsy Confirmed Active Obese class I Confirmed Active Social History Social History Type Response Smoking Status Never smoker; Tobacc o user in household: No entered on: 10/05/15 Sex Sex Representation Female (finding) Patient Care team information Care Team Personnel Name: Rosalinda Kong MD Position: [facility] Physician - Primary Care Member Role: PCP Address: [address] [place] [address] Telecom: Care Team Related Persons Name: CHIO CLARK Insurance Providers Guarantor name: FEBRUARY AMBER Health Plan Information #: 2 Payer: [employer] Member Number: [id number] Policy Number: NA Group Number: NA Health Plan Information #: 1 Payer: MEDICARE PART B OUTPT Member Number: [id number] Policy Number: NA Group Number: NA
--- OUTSIDE RECORDS SUMMARY | 2024-12-25 10:29 | XMS_ITS | Continuity of Care Document ---
Author Organization [facility] Address [address] [facility], [address] Floor, [address] [place] [id number]- Care Team Providers Care Undergraduate Advisor Name Role Phone Dilan SANTOS, Roslainda Primary Care Physician [phone] Encounter [facility] Date(s): 11/09/24 - 12/09/24 [facility] [address] [facility] [address]rd Floor, [address] [place] [id number]- Attending Physician: Jannie Villavicencio Admitting Physician: Jannie Villavicencio Referring Physician: Jannie Villavicencio Encounter Type: Triage Allergies, Adverse Reactions, Alerts Substance Criticality Severity [...] tablet, 3 Refills, Maintenance, 10/06/24 3:00:00 PM [facility], [facility], 150, cm, 02/17/24 12:53:00 EDT, Height, 70, [...] tablet, 11 Refills, Maintenance, 10/06/24 3:00:00 PM [facility], 150, cm, 02/17/24 12:53:00 EDT, Height, 70, kg, 06/24/23 12:09:00 EDT, Dry Weight Start Date: 10/06/24 Status: Ordered Quantity: 90.0 Unit: tablet Repeat number: 1 levOCARNitine 330 mg oral tablet 1, tablet, By Mouth, 3 times a day, (SEIZURE) KEEP IN ORIGINAL PACKAGE, # 90 tablet, Refills 3,Maintenance, 09/23/24 4:08:00 PM EDT, Route to Pharmacy Electronically, [facility], 150, cm, 02/17/24 12:53:00 EDT, Height, 70, [...] Team Personnel Name: Rosalinda Kong MD [facility] - Primary Care Member Role: PCP Address: [address] [place] [address] Telecom: Care Team Related Persons Name: CHIO CLARK Insurance Providers Guarantor name: FEBRUARY AMBER Health Plan Information #: 1 Payer: MEDICARE PART B OUTPT Member Number: NA Policy Number: NA Group Number: NA Health Plan Information #: 2 Payer: [place] Member Number: NA Policy Number: NA Group Number: NA
== END 2024-12-25 12:06 | disposition home or self-care (01) ==
PROVIDERS: PCP Internal Medicine; Visit Provider Internal Medicine
DX: Z00.00 Encounter for general adult medical examination without abnormal findings (principal); G40.909 Epilepsy, unspecified, not intractable, without status epilepticus; E55.9 Vitamin D deficiency, unspecified; E03.9 Hypothyroidism, unspecified

== ENCOUNTER → 2024-12-25 09:50 | Outpatient (BNVA) | payer MEDICARE, MEDICAID, SELFPAY | PROVIDERS: PCP Internal Medicine; Visit Provider Internal Medicine | DX: Z00.00 Encounter for general adult medical examination without abnormal findings (principal); G40.909 Epilepsy, unspecified, not intractable, without status epilepticus; E55.9 Vitamin D deficiency, unspecified; E03.9 Hypothyroidism, unspecified | CPT/HCPCS: 96127; 99396 ==

== ENCOUNTER 2025-07-13 06:57 | Outpatient (REF) | payer MEDICARE, MEDICAID, SELFPAY ==
[2025-07-13 10:44] LABS: Alanine Aminotransferase 20 U/L (0-31); Albumin Level 4.4 g/dL (3.5-5.0); Alkaline Phosphatase 72 U/L (39-117); Anion Gap 12 (12-20); Aspartate Amino Transferase 24 U/L (5-31); Blood Urea Nitrogen 13 mg/dL (9-16); Calcium 9.4 mg/dL (8.4-10.2); Carbon Dioxide 28 mmol/L (22-29); Chloride 106 mmol/L (96-108); Cholesterol 217 mg/dL (<200); Estimated Glomerular Filt Rate > 60; HDL Cholesterol 56 mg/dL (>40); Potassium 4.0 mmol/L (3.3-5.1); Sodium 142 mmol/L (135-145); Total Protein 7.0 g/dL (6.5-8.0); Triglycerides 162 mg/dL (<150)
[2025-07-13 11:02] LABS: Folate 14.3 ng/mL (> or = 4.0); Vitamin B12 575 pg/mL (200-900)
[2025-07-13 11:19] LABS: Free T4 (Free Thyroxine) 1.11 ng/dL (0.71-1.85)
== END 2025-07-13 06:58 | disposition home or self-care (01) ==
LOC: HO.HMGCLDS 06:57
PROVIDERS: PCP Internal Medicine; Visit Provider Internal Medicine
DX: Z00.00 Encounter for general adult medical examination without abnormal findings (principal); G40.909 Epilepsy, unspecified, not intractable, without status epilepticus; E55.9 Vitamin D deficiency, unspecified; E03.9 Hypothyroidism, unspecified
CPT/HCPCS: 36415; 80053; 80061; 82306; 82607; 82746; 84439; 84443

== ENCOUNTER 2025-08-31 07:02 | Outpatient (REF) | payer MEDICARE, MEDICAID, SELFPAY ==
[2025-08-31 12:14] LABS: Free T4 (Free Thyroxine) 1.01 ng/dL (0.71-1.85)
== END 2025-08-31 07:03 | disposition home or self-care (01) ==
LOC: HO.HMGCLDS 07:02
PROVIDERS: Internal Medicine; PCP Internal Medicine; Visit Provider Internal Medicine
DX: E03.9 Hypothyroidism, unspecified (principal)
CPT/HCPCS: 36415; 84439; 84443